=== PATIENT | male | born 1955 | race Hispanic/Latino ===

== ENCOUNTER 2018-11-17 10:49 | Emergency (ER) | payer MEDICARE ==
--- NOTE | 2018-11-17 11:27 | ED PDOC ---
HPI: Trauma/Fall - HPI Time Seen by Provider: 11/17/18 11:15 Chief Complaint (Nursing): Trauma Chief Complaint (Provider): fall, trauma History Per: Patient History/Exam Limitations: no limitations Onset/Duration Of Symptoms: Sudden Onset Injury Occurred (Timing): Just Before Arrival Location Of Injury: Left: Arm, Face, Head Anterior Full Body: 1 - pain 2 - abrasions Severity: Severe Associated Symptoms: Dazed Additional Complaint(s): 63yo male states trip/fall on sidewalk today sustaining injury to head and L arm, notes headache, L shoulder and arm pain. Denies change vision, focal weakness, numbness, nausea, abd, back or hip pain. - Fall Fall:Prior To Injury: Tripped Past Medical History Reviewed: Historical Data, Nursing Documentation, Vital Signs Vital Signs: Last Vital Signs Temp 99.1 F 11/17/18 10:55 Pulse 90 11/17/18 10:55 Resp 20 11/17/18 10:55 BP 129/89 11/17/18 10:55 Pulse Ox 96 11/17/18 10:55 Primary Care Provider: Wan Lafleur - Medical History PMH: Bronchitis, CAD, HTN, Hypercholesterolemia (Hyperlipidemia) Denies: Chronic Kidney Disease - Surgical History Surgical History: CABG (x3) - Family History Family History: States: Unknown Family Hx - Social History Current smoker - smoking cessation education provided: No - Home Medications Home Medications: Ambulatory Orders Medication Instructions Recorded Aspirin [Ecotrin] 81 mg PO DAILY 07/03/15 Atorvastatin Calcium [Lipitor] 40 mg PO DAILY 07/03/15 Metoprolol Succinate 25 mg PO BID 07/03/15 Ibuprofen [Motrin Tab] 600 mg PO Q6 PRN #15 tab 11/17/18 - Allergies Allergies/Adverse Reactions: Allergies Allergy/AdvReac Type Severity Reaction Status Date / Time No Known Allergies Allergy Verified 11/17/18 11:08 Review of Systems ROS Statement: Except As Marked, All Systems Reviewed And Found Negative Constitutional: Negative for: Fever Eyes: Negative for: Conjunctivae Inflammation ENT: Negative for: Throat Pain Cardiovascular: Negative for: Chest Pain Respiratory: Negative for: Shortness of Breath Gastrointestinal: Negative for: Vomiting, Abdominal Pain Musculoskeletal: Positive for: Shoulder Pain, Arm Pain. Negative for: Neck Pain, Leg Pain, Foot Pain Skin: Negative for: Rash, Lesions Neurological: Positive for: Headache, Dizziness. Negative for: Weakness, Numbness Psych: Negative for: Suicidal ideation Physical Exam - Reviewed Nursing Documentation Reviewed: Yes Vital Signs Reviewed: Yes - Physical Exam Appears: Positive for: Well, Non-toxic, No Acute Distress Head Exam: Positive for: NORMOCEPHALIC. Negative for: ATRAUMATIC (+ abrasion and scalp hematoma L forehead), NORMAL INSPECTION Skin: Positive for: Normal Color, Warm, DRY Eye Exam: Positive for: EOMI, Normal appearance, PERRL ENT: Positive for: Normal ENT Inspection Neck: Positive for: Normal, Painless ROM Cardiovascular/Chest: Positive for: Regular Rate, Rhythm, Chest Non Tender Respiratory: Positive for: CNT, Normal Breath Sounds Gastrointestinal/Abdominal: Positive for: Soft. Negative for: Tenderness Back: Positive for: Normal Inspection Extremity: Positive for: Tenderness (L arm and shoulder), Swelling (L elbow and humerus), Other (L shoulder/humeral and elbow tenderness w edema and ecchymosis to humerus and elbow, +distal pulses and normal ROM active of hand) Neurological/Psych: Positive for: Awake, Alert, Normal Tone - Laboratory Results Result Diagrams: 11/17/18 11:36 11/17/18 11:36 - ECG O2 Sat by Pulse Oximetry: 96 Medical Decision Making Medical Decision Making: workup for traumatic fall initiated morphine ordered for pain as suspicion of arm fracture r/o ICH or fracture w CT brain and CSpine, takes aspirin daily Xrays LUE and Chest/pelvis for fall pt refused splint, risks explained, preferred only slight has FROM L arm on re-eval labs reviewed and reveal only mild dehydration CT brain and CSpine reports reviewed official xray reports reviewed neg fracture or dislocation bacitracin applied to abrasions after wound care initiated 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 referred to ortho conservation enforcement officer 3-4 days Hold ASA for 3 days given head injury Followup PMD tomorrow Disposition - Clinical Impression Clinical Impression: Head injury, Abrasion, Elbow injury, Shoulder strain, Wrist sprain - Patient ED Disposition Is Patient to be Admitted: No Counseled Patient/Family Regarding: Studies Performed, Diagnosis, Need For Followup, Rx Given - Disposition Referrals: Stewart Lewis MD [Medical Doctor] - Disposition: Routine/Home Disposition Time: 15:30 Condition: STABLE Additional Instructions: Wear splint and sling x3 days then see PMD or orthopedics for re-evaluation and removal. Return to ER for any worse or new symptoms Take motrin as needed every 6 hours for pain/. Prescriptions: Ibuprofen [Motrin Tab] 600 mg PO Q6 PRN #15 tab PRN Reason: Pain, Moderate (4-7) Instructions: Muscle Strain (DC), Skin Abrasions, Minor Head Injury (DC), Common Wrist Injuries, Shoulder Instability (DC), Swollen Joints (DC) Forms: [employer] ([employer])
[2018-11-17 11:59] LABS: BASO % 0.2 % (0.0-2.0); EOS # 0.1 K/uL (0.0-0.7); EOS % 0.8 % (0.0-4.0); HEMOGLOBIN 14.2 g/dL (12.0-18.0); LYMPH # 1.2 K/uL (1.0-4.3); LYMPH % 12.3 % (20.0-40.0); MEAN CELL VOLUME 90.4 fl (80.0-94.0); MEAN CORPUSCULAR HEMOGLOBIN 30.4 pg (27.0-31.0); MEAN CORPUSCULAR HGB CONC 33.7 g/dL (33.0-37.0); MEAN PLATELET VOLUME 8.7 fl (7.2-11.7); MONO # 0.6 K/uL (0.0-0.8); MONO % 6.7 % (0.0-10.0); NEUT # 7.6 K/uL (1.8-7.0); NRBC % 0.1 % (0.0-0.0); RBC 4.65 Mil/uL (4.40-5.90); RED CELL DISTRIBUTION WIDTH 13.3 % (11.5-14.5); WHITE BLOOD COUNT 9.5 K/uL (4.8-10.8)
[2018-11-17 12:01] LABS: BLOOD UREA NITROGEN 28 mg/dl (9-20); CALCIUM 9.4 mg/dL (8.4-10.2); GFR NON-AFRICAN AMERICAN > 60; PARTIAL THROMBOPLASTIN TIME 29.6 Seconds (25.6-37.1)
--- NOTE | 2018-11-17 12:52 | CT ---
Date of service: 11/17/2018 PROCEDURE: CT HEAD WITHOUT CONTRAST. HISTORY: r/o ICH COMPARISON: No prior similar study available for comparison. TECHNIQUE: Axial computed tomography images were obtained through the head/brain without intravenous contrast. Radiation dose: Total exam DLP = 925.54 mGy-cm. This CT exam was performed using one or more of the following dose reduction techniques: Automated exposure control, adjustment of the mA and/or kV according to patient size, and/or use of iterative reconstruction technique. FINDINGS: HEMORRHAGE: No intracranial hemorrhage. BRAIN: No mass effect or edema. Mild volume loss is noted. VENTRICLES: Unremarkable. No hydrocephalus. CALVARIUM: Unremarkable. PARANASAL SINUSES: Unremarkable as visualized. No significant inflammatory changes. MASTOID AIR CELLS: Unremarkable as visualized. No inflammatory changes. OTHER FINDINGS: None. IMPRESSION: No evidence of acute intracranial hemorrhage mass effect or midline shift. Mild volume loss.
--- NOTE | 2018-11-17 12:56 | CT ---
Date of service: 11/17/2018 PROCEDURE: CT Cervical Spine without contrast HISTORY: trauma r/o fx COMPARISON: None available. TECHNIQUE: Axial computed tomography images were obtained of the cervical spine without the use of intravenous contrast. Coronal and sagittal reformatted images were created and reviewed. 3D reformatted images of the cervical spine were also obtained. Radiation dose: Total exam DLP = 334.39 mGy-cm. This CT exam was performed using one or more of the following dose reduction techniques: Automated exposure control, adjustment of the mA and/or kV according to patient size, and/or use of iterative reconstruction technique. FINDINGS: VERTEBRAE: No fracture. Normal alignment. No destructive bony lesion. Heterogeneous attenuation of the osseous structure with foci of low attenuation noted in the vertebral bodies of uncertain etiology. DISCS/SPINAL CANAL/NEURAL FORAMINA: No significant central canal or neural foraminal stenosis. Discs heights are grossly preserved. Mild spondylosis is noted. PARASPINAL SOFT TISSUES: Unremarkable. OTHER FINDINGS: None. IMPRESSION: No evidence of displaced fracture or subluxation. Heterogeneous attenuation of the osseous structures with questionable foci of low attenuation in the vertebral bodies of uncertain etiology. Mild spondylosis.
[2018-11-17] MEDS ORDERED: Bacitracin 500 Units/gm Oint Foilpak UD TOP STA (15:23)
--- NOTE | 2018-11-17 15:34 | RAD ---
Date of service: 11/17/2018 HISTORY: chest pain/ r/o infiltrate COMPARISON: 06/14/2014. TECHNIQUE: Chest PA and lateral views FINDINGS: LUNGS: No active pulmonary disease. PLEURA: No significant pleural effusion identified. No pneumothorax apparent. CARDIOVASCULAR: No aortic atherosclerotic calcification present. No radiographic findings to suggest acute or significant cardiovascular disease. Incidental Finding(s): Postoperative changes related to sternotomy. OSSEOUS STRUCTURES: No significant abnormalities. VISUALIZED UPPER ABDOMEN: Normal. OTHER FINDINGS: None. IMPRESSION: No active disease.
--- NOTE | 2018-11-17 15:34 | RAD ---
Date of service: 11/17/2018 PROCEDURE: Radiographs of the Left Shoulder HISTORY: Posttraumatic left upper extremity pain. COMPARISON: No prior. TECHNIQUE: 3 views obtained. FINDINGS: BONES: Normal. No fracture. JOINTS: Normal. Glenohumeral and acromioclavicular joints preserved. No osteoarthritis. SOFT TISSUES: Normal. OTHER FINDINGS: None. IMPRESSION: Normal radiographs of the left shoulder.
--- NOTE | 2018-11-17 15:36 | RAD ---
Date of service: 11/17/2018 PROCEDURE: Radiographs of the left elbow. HISTORY: fall trauma COMPARISON: No prior. TECHNIQUE: 2 views obtained. FINDINGS: BONES: No acute fracture. Evidence of prior distal humeral fracture. JOINTS: Normal. No osteoarthritis. SOFT TISSUES: Soft tissue swelling about the olecranon JOINT EFFUSION: None. OTHER FINDINGS: None IMPRESSION: Soft tissue swelling without acute articular or osseous abnormality.
--- NOTE | 2018-11-17 15:36 | RAD ---
Date of service: 11/17/2018 PROCEDURE: Radiographs of the Left Forearm HISTORY: fall trauma COMPARISON: None available. TECHNIQUE: Frontal and lateral views obtained. 2 views obtained. FINDINGS: BONES: No fracture or destructive lesion. JOINT SPACES: Unremarkable. OTHER FINDINGS: Soft tissue swelling about the olecranon. IMPRESSION: Unremarkable radiographs of the left radius and ulna.
--- NOTE | 2018-11-17 15:37 | RAD ---
Date of service: 11/17/2018 PROCEDURE: Left Wrist Radiographs. HISTORY: fall trauma COMPARISON: November 17, 2018. TECHNIQUE: Three views obtained. FINDINGS: BONES: Normal. No fracture. JOINTS: Osteoarthritic changes carpal 1st metacarpal joint. SOFT TISSUES: Normal. OTHER FINDINGS: None. IMPRESSION: No acute findings related to/ accounting for the clinical presentation. Additional benign and/or incidental findings described above.
--- NOTE | 2018-11-17 15:37 | RAD ---
PROCEDURE: Radiographs of the left humerus. HISTORY: fall trauma COMPARISON: November 17, 2018. TECHNIQUE: 2 views obtained. FINDINGS: BONES: Normal. No fracture or focal lesion. SOFT TISSUES: Normal. OTHER FINDINGS: None. IMPRESSION: Normal radiographs of left humerus.
--- NOTE | 2018-11-17 15:38 | RAD ---
Date of service: 11/17/2018 PROCEDURE: Radiographs of the pelvis. HISTORY: fall COMPARISON: None. TECHNIQUE: 1 view obtained. FINDINGS: BONES: Pelvic Bones: Unremarkable. Hips: Grossly unremarkable. JOINTS: Sacroiliac Joints: Unremarkable. Pubic Symphysis: Unremarkable. OTHER FINDINGS: None. IMPRESSION: Unremarkable radiographs of the pelvis.
[2018-11-17 16:13] VITALS: BP 141/88; PULSE 84; RESP 18; TEMP 98.2
[2018-11-17 16:18] VITALS: O2SAT 96
== END 2018-11-17 16:10 | disposition home or self-care (01) ==
LOC: H.ER 10:49
DX: M25.512 Pain in left shoulder (principal); S09.90XA Unspecified injury of head, initial encounter; S00.01XA Abrasion of scalp, initial encounter; S59.909A Unspecified injury of unspecified elbow, initial encounter; S46.919A Strain of unspecified muscle, fascia and tendon at shoulder and upper arm level, unspecified arm, initial encounter; S63.509A Unspecified sprain of unspecified wrist, initial encounter; W01.0XXA Fall on same level from slipping, tripping and stumbling without subsequent striking against object, initial encounter; Y92.480 Sidewalk as the place of occurrence of the external cause; I10 Essential (primary) hypertension; Z95.1 Presence of aortocoronary bypass graft; Z79.82 Long term (current) use of aspirin; E78.00 Pure hypercholesterolemia, unspecified; I25.10 Atherosclerotic heart disease of native coronary artery without angina pectoris
CPT/HCPCS: 70450; 71046; 72125; 72170; 73030; 73060; 73080; 73090; 73110; 80048; 85025; 85610; 85730; 99285; J2270